=== PATIENT | male | born 1975 | race Caucasian/White ===

== ENCOUNTER → 2020-04-19 | Outpatient (CLI) | payer BC ==
[2018-09-25 18:00] VITALS: BP 144/90
[~2020-04-19] MED LIST: CATAPRES0.1 M1 PO; COZAAR100 MG PO; FLONASE ALLERG9.9 ML NS; MULTIVITAMIN1 SGL PO; OMEPRAZOLE40 MG PO; SINGULAIR PO; XYZAL5 MG PO
== END ==
LOC: RAD 08:00
DX: M25.561 Pain in right knee (principal)

== ENCOUNTER → 2020-06-06 | Outpatient (CLI) | payer BC ==
[2018-09-25 18:00] VITALS: BP 144/90
== END ==
LOC: RAD 09:50
DX: R10.11 Right upper quadrant pain (principal); R11.0 Nausea; R14.0 Abdominal distension (gaseous)

== ENCOUNTER → 2021-05-10 | Outpatient (CLI) | payer BC | LOC: RAD 13:02 | DX: M47.816 Spondylosis without myelopathy or radiculopathy, lumbar region (principal); M48.062 Spinal stenosis, lumbar region with neurogenic claudication; R20.2 Paresthesia of skin ==

== ENCOUNTER 2021-10-22 23:25 | Emergency (ER) | payer BC ==
[~2021-10-22] VITALS: Ht 170.2 cm; Wt 77.3 kg
[2021-10-23 00:20] LABS: BASO # 0.05 K/mm3 (0.02-0.10); EOS % 5.5 % (0.0-4.0); HEMATOCRIT 46.6 % (42.0-52.0); HEMOGLOBIN 15.8 g/dL (13.5-18.0); LYMPH# 2.49 K/mm3 (1.50-4.00); MEAN CELL VOLUME 83 fl (78-100); MEAN CORPUSCULAR HEMOGLOBIN 28 pg (27-31); MEAN CORPUSCULAR HGB CONC 34 g/dL (33-37); MEAN PLATELET VOLUME 10.7 fl (7.4-10.4); NEU # 3.42 K/mm3 (1.40-6.50); PLATELET COUNT 148 K/mm3 (130-400); RED BLOOD COUNT 5.62 M/mm3 (4.20-5.60); RED CELL DISTRIBUTION WIDTH 13.5 % (11.5-14.5); WHITE BLOOD COUNT 7.2 K/mm3 (4.8-10.8)
[2021-10-23 00:23] LABS: ALBUMIN 4.3 g/dL (3.5-5.0)
[2021-10-23 00:24] LABS: POTASSIUM 3.4 mmol/L (3.5-5.1); SODIUM 142 mmol/L (136-145)
[2021-10-23 00:25] LABS: CALCIUM 9.1 mg/dL (8.3-10.5)
[2021-10-23 00:26] LABS: GLUCOSE 117 mg/dL (75-110); TOTAL PROTEIN 6.8 g/dL (6.4-8.3)
[2021-10-23 00:27] LABS: CARBON DIOXIDE 23 mmol/L (22-29)
[2021-10-23 00:28] LABS: TOTAL BILIRUBIN 0.5 mg/dL (0.2-1.2)
[2021-10-23 00:31] LABS: AST-SGOT 25 U/L (5-34)
[2021-10-23 00:33] LABS: ALT/SGPT 53 U/L (0-55)
[2021-10-23 00:41] LABS: TROPONIN-I < 0.030 ng/mL (<0.030)
[2021-10-23 01:01] LABS: PARTIAL THROMBOPLASTIN TIME 24.4 SECONDS (21.0-32.0); PROTHROMBIN TIME 9.5 SECONDS (9.0-12.0)
[2021-10-23 04:02] VITALS: BP 116/89
[2021-10-23] MEDS ORDERED: NORCO 325 MG-7.1 TA1 PO (04:04)
== END 2021-10-23 04:02 | disposition home or self-care (01) ==
LOC: ED 23:25
PROVIDERS: Nurse Practitioner
DX: R07.89 Other chest pain (principal); K21.9 Gastro-esophageal reflux disease without esophagitis; I10 Essential (primary) hypertension; Z87.891 Personal history of nicotine dependence; Z79.899 Other long term (current) drug therapy

== ENCOUNTER → 2022-04-29 | Outpatient (CLI) | payer BC ==
[~2022-04-29] MED LIST changes: +NORCO 325 MG-7.1 TA1 PO
== END ==
LOC: RAD 16:35
DX: M48.02 Spinal stenosis, cervical region (principal); M50.11 Cervical disc disorder with radiculopathy, high cervical region; Q38.3 Other congenital malformations of tongue

== ENCOUNTER → 2022-05-10 | Outpatient (CLI) | payer BC | LOC: RAD 10:48 | DX: M79.89 Other specified soft tissue disorders (principal) | CPT/HCPCS: Q9967 ==